=== PATIENT | male | born 1935 | race Two or more races ===

== ENCOUNTER 2023-01-16 10:43 | Emergency (ER) | payer MEDICAID, OTHER ==
[~2023-01-16] VITALS: Ht 165.1 cm; Wt 78.5 kg
[2023-01-16] MEDS ORDERED: KETOROLAC TROMETH 60MG/2ML VIAL IM ONE (12:30)
[2023-01-16 12:45] VITALS: BP 126/94
== END 2023-01-16 13:58 | disposition home or self-care (01) ==
LOC: ER 10:43 → EDBD 10:43 → ER 13:45
DX: M79.18 Myalgia, other site (principal); M25.562 Pain in left knee; R07.81 Pleurodynia; E11.9 Type 2 diabetes mellitus without complications; I10 Essential (primary) hypertension; W01.0XXA Fall on same level from slipping, tripping and stumbling without subsequent striking against object, initial encounter; Y93.89 Activity, other specified; Y92.89 Other specified places as the place of occurrence of the external cause; Y99.8 Other external cause status
CPT/HCPCS: 71250; 73562; 74176; 96372; 99285; J1885